=== PATIENT | male | born 1970 | race Caucasian/White ===

== ENCOUNTER → 2024-02-08 | Outpatient (CLI) | payer OTHER, SELFPAY ==
--- NOTE | 2024-02-08 14:21 | RAD_ITS ---
EXAM: XR LUMBOSACRAL SPINE COMPLETE WITH FLEXION/EXTENSION, 6 OR MORE VIEWS CLINICAL INDICATION: back pain, leg pain TECHNIQUE: Lateral, frontal, oblique and lateral flexion/extension views of the lumbar spine and sacrum. COMPARISON: No relevant prior studies available. FINDINGS: VERTEBRAE: Mild multilevel endplate osteophytosis and facet arthrosis. No spondylolysis or spondylolisthesis. Preservation of the normal lumbar lordosis. No acute fracture. No abnormal motion upon flexion or extension. DISC SPACES: Multilevel intervertebral disc height loss worst at L5-S1. GASTROINTESTINAL TRACT: Normal as visualized. Included bowel gas pattern is non-obstructive. RAD/L/S Spine w Bend Min 6 Vw IMPRESSION: Degenerative changes. No fracture or spondylolysis. Electronically Signed: Don Betts DO at 21:31 EDT ,
[2024-02-08 17:58] LABS: Absolute Lymphocyte Count 1.53 X10^3/uL (0.83-4.51); Basophil# 0.07 X10^3/uL; Basophil% 0.9 % (0-1); Eosinophil# 0.18 X10^3/uL; Eosinophils% 2.4 % (0-5); Hematocrit 47.4 % (40-54); Lymphocyte # 1.53 X10^3/ul (0.83-4.51); Lymphocyte % 20.8 % (19-41); Mean Corp Hgb Conc 33.8 g/dL (32-36); Mean Corpuscular Hgb 30.2 pg (27.0-32.0); Mean Corpuscular Volume 89.4 fL (80-94); Monocyte% 8.1 % (0-10); NRBC Flagged by Analyzer 0 % (0-5); Neutrophil # 4.97 X10^3/uL (2.7-7.7); Neutrophil % 67.5 % (47-70); Platelet Count 207 K/mm3 (150-450); RBC Distribution Width CV 12.8 % (11.6-14.6); White Blood Count 7.4 K/mm3 (4.4-11.0)
[2024-02-08 18:27] LABS: Vitamin D,25 Hydroxy 22.7 ng/mL
[2024-02-08 18:38] LABS: ALB/GLOB Ratio 1.4 RATIO (0.9-2.4); AST(SGOT) 19 U/L (15-37); Alanine Aminotransfer ALT/SGPT 37 U/L (16-61); Albumin, Serum 4.2 g/dL (3.2-5.0); Alkaline Phosphatase 82 U/L (45-117); Anion Gap 6 (5-15); BUN 15 mg/dL (7-18); BUN/Creat Ratio 15.6 RATIO (10-20); CPK Total, Creatine Kinase 149 U/L (39-308); CRP < 2.90 mg/L (0.0-3.0); Calcium,Total 9.3 mg/dL (8.5-10.1); Chloride 106 mmol/L (98-107); Creatinine, Serum 0.96 mg/dL (0.70-1.30); EST Glomerular Filtration Rate 87 mL/min (>60); Est Glom Filt Rate - Afr Amer 105 mL/min (>60); Globulin 2.9 g/dL (2.2-4.2); Glucose 121 mg/dL (74-106); Potassium 3.7 mmol/L (3.5-5.1); Protein, Total 7.1 g/dL (6.4-8.2); Sodium Level 139 mmol/L (136-145); Uric Acid 6.6 mg/dL (3.5-7.2)
[2024-02-08 18:58] LABS: Erythrocyte Sedimentation Rate < 1 mm/hr (0-20)
[2024-02-10 14:10] LABS: ANTINUCLEAR ANTIBODIES DIRECT Negative (Negative)
[2024-02-10 15:08] LABS: Aldolase 7.5 U/L (3.3-10.3)
== END | disposition home or self-care (01) ==
PROVIDERS: PCP Family Medicine; Referring Provider Family Medicine; Visit Provider Family Medicine
DX: M10.9 Gout, unspecified (principal); R25.2 Cramp and spasm; M54.9 Dorsalgia, unspecified
CPT/HCPCS: 36415; 72114; 80053; 82085; 82306; 82550; 84403; 84443; 84550; 85025; 85652; 86038; 86140